=== PATIENT | female | born 1950 ===

== ENCOUNTER 2022-03-13 23:36 | Inpatient (IN) | payer MEDICARE ==
[2022-03-14 00:12] VITALS: BMI 32.6
[2022-03-14] MEDS ORDERED: Ondansetron PF 4 MG/2 ML Vial IVP PRN (01:02)
[2022-03-14] MEDS ORDERED: Guaifenesin DM 100-10/5 ML UDCUP PO PRN (01:02)
[2022-03-14] MEDS ORDERED: Senokot S 8.6-50 MG TAB PO PRN (01:02)
[2022-03-14] MEDS ORDERED: Zolpidem Tartrate 5 MG TAB PO PRN (01:02)
[2022-03-14] MEDS ORDERED: Calcium Carbonate 500 MG ChewTAB PO PRN (01:02)
[2022-03-14] MEDS ORDERED: HYDROcodone/Acetaminophen 5/325 mg Tablet PO PRN (01:02)
[2022-03-14] MEDS ORDERED: Acetaminophen 325 MG TAB PO PRN (01:02)
[2022-03-14] MEDS ORDERED: Nitroglycerin 0.4 MG TAB (25 Tab Bottle) SL PRN (01:05)
[2022-03-14] MEDS ORDERED: Morphine 2 MG/ML VIAL SLOW IVP SCH (01:15)
[2022-03-14] MEDS: Metoprolol Tartrate 25 MG TAB PO SCH ×2 (01:37→14:24)
[2022-03-14] MEDS ORDERED: Lactated Ringer's 1,000 ML IV SCH (02:00)
[2022-03-14 02:03] LABS: Anion Gap 14 mmol/L (10-20); BUN (Urea Nitrogen) 20 mg/dL (9.8-20.1); Calc. Creatinine Clearance 103 mL/min (70-130); Calcium 9.2 mg/dL (7.8-10.44); Carbon Dioxide 25 mmol/L (23-31); Chloride 104 mmol/L (98-107); Estimated GFR 83; Glucose 119 mg/dL (83-110); Potassium 3.8 mmol/L (3.5-5.1); Sodium 139 mmol/L (136-145)
[2022-03-14 02:31] LABS: CKMB 10.2 ng/mL (0-6.6)
[2022-03-14 06:26] LABS: Cardiac Risk 2.8 (Less than 4.5)
[2022-03-14 06:46] LABS: Legionella Urinary Ag Negative (Negative)
[2022-03-14 06:47] LABS: Strep pneumo Urine Ag NEGATIVE (NEGATIVE)
[2022-03-14 06:50] LABS: CKMB 9.3 ng/mL (0-6.6)
[2022-03-14] MEDS ORDERED: Enoxaparin Sodium 100 MG/ML SYRINGE SC SCH (09:00)
[2022-03-14] MEDS: Famotidine/PF 20 mg/2ml Vial SLOW IVP SCH ×2 (09:03→22:15)
[2022-03-14] MEDS: Aspirin 81 mg Enteric Coated Tablet PO SCH (09:04)
[2022-03-14] MEDS ORDERED: Iopamidol 300 61% 100 ML VIAL FS ONE (10:18)
[2022-03-14 13:05] LABS: Hemoglobin A1c 5.6 % (4.0-6.0)
[2022-03-14] MEDS ORDERED: Heparin 10,000 UNITS/ 10 ML VIAL ONE (13:54)
[2022-03-14] MEDS ORDERED: Nitroglycerin 50 MG/250 ML BOT 250 ML ONE (13:54)
[2022-03-14] MEDS ORDERED: Bivalirudin 250 MG VIAL ONE ×2 (13:55→15:54)
[2022-03-14] MEDS ORDERED: Adenosine 6 MG/2 ML VIAL ONE (13:55)
[2022-03-14] MEDS ORDERED: Verapamil 5 MG/2 ML VIAL ONE (13:55)
[2022-03-14] MEDS ORDERED: Lidocaine 1% MPF 2 ML VIAL ONE (13:59)
[2022-03-14] MEDS ORDERED: Fentanyl 100 MCG/2 ML VIAL ONE (14:12)
[2022-03-14] MEDS ORDERED: Midazolam HCl 2 mg/2 ml Vial ONE ×2 (14:12→15:35)
[2022-03-14] MEDS ORDERED: Clopidogrel Bisulfate 300 MG TAB ONE (15:22)
[2022-03-14] MEDS ORDERED: Ondansetron PF 4 MG/2 ML Vial ONE (16:20)
[2022-03-14] MEDS ORDERED: Sodium Chloride 0.9% 1,000 ML IV SCH (16:30)
[2022-03-14] MEDS ORDERED: Carvedilol 6.25 MG TAB PO SCH (16:45)
[2022-03-14] MEDS ORDERED: TICAGRELOR 90 MG TABLET PO SCH (21:00)
[2022-03-14] MEDS ORDERED: Atorvastatin Calcium 10 MG TAB PO SCH (21:00)
[2022-03-15 04:28] LABS: #Basophils 0.1 10x3/uL (0.0-0.2); #Eosinphils 0.2 10x3/uL (0.0-0.5); #Monocytes 0.7 10x3/uL (0.0-1.1); #Neutrophils 5.3 10x3/uL (1.5-8.4); %Basophils 0.8 % (0.0-2.0); %Eosinophils 3.1 % (0.0-6.0); %Lymphocytes 18.8 % (18.0-47.0); %Monocytes 9.5 % (0.0-10.0); %Neutrophils 67.4 % (40.0-75.0); ALT (SGPT) 18 U/L (8-55); AST (SGOT) 24 U/L (5-34); Albumin 3.6 g/dL (3.4-4.8); Alkaline Phosphatase 60 U/L (40-110); Anion Gap 12 mmol/L (10-20); BUN (Urea Nitrogen) 11 mg/dL (9.8-20.1); Bilirubin, Total 0.7 mg/dL (0.2-1.2); Calc. Creatinine Clearance 107 mL/min (70-130); Calcium 8.8 mg/dL (7.8-10.44); Carbon Dioxide 21 mmol/L (23-31); Chloride 106 mmol/L (98-107); Estimated GFR 87; Globulin 2.2 g/dL (2.4-3.5); Glucose 109 mg/dL (83-110); Hemoglobin 12.8 g/dL (12.0-15.5); Mean Corpuscular HGB CONC 33.7 g/dL (32.0-36.0); Mean Corpuscular Hemoglobin 29.4 pg (27.0-33.0); Mean Corpuscular Volume 87.4 fl (81.6-98.3); Mean Platelet Volume 8.8 fl (7.4-10.4); Platelet Count 344 10x3/uL (150-450); Potassium 3.7 mmol/L (3.5-5.1); Protein, Total 5.8 g/dL (5.8-8.1); RBC Distribution Width 13.6 % (11.5-14.5); Red Blood Cell (RBC) Count 4.35 10x6/uL (3.90-5.03); Sodium 135 mmol/L (136-145); White Blood Cell (WBC) Count 7.8 10x3/uL (3.5-10.5)
[2022-03-15 07:21] VITALS: TEMP 97.6
[2022-03-15] MEDS ORDERED: Carvedilol 6.25 MG TAB PO SCH (08:00)
[2022-03-15] MEDS: Famotidine/PF 20 mg/2ml Vial SLOW IVP SCH (08:32)
[2022-03-15] MEDS: Aspirin 81 mg Enteric Coated Tablet PO SCH (08:32)
[2022-03-15] MEDS ORDERED: Calcium Carbonate 500 MG ChewTAB PO SCH (09:00)
[2022-03-15] MEDS ORDERED: Clopidogrel Bisulfate 75 MG TAB PO SCH (09:00)
[2022-03-15 12:56] VITALS: BP 122/73
[2022-03-15] MEDS ORDERED: Atorvastatin Calcium 40 MG TAB PO SCH (21:00)
== END 2022-03-15 13:03 | disposition home or self-care (01) | DRG 247 ==
LOC: CSHTELE 23:36 → UNDOADMIN 23:36 → CSHTELE 03-14 01:02
PROVIDERS: ADMIT Student in an Organized Health Care Education/Training Program; ATTEND Family Medicine
PROC: 027034Z Dilation of Coronary Artery, One Artery with Drug-eluting Intraluminal Device, Percutaneous Approach (ICD-10-PCS; principal; 2022-03-14)
PROC: 4A023N7 Measurement of Cardiac Sampling and Pressure, Left Heart, Percutaneous Approach (ICD-10-PCS; 2022-03-14)
PROC: B2111ZZ Fluoroscopy of Multiple Coronary Arteries using Low Osmolar Contrast (ICD-10-PCS; 2022-03-14)
DX: I21.4 Non-ST elevation (NSTEMI) myocardial infarction (principal); I42.9 Cardiomyopathy, unspecified; R73.9 Hyperglycemia, unspecified; I25.10 Atherosclerotic heart disease of native coronary artery without angina pectoris; I10 Essential (primary) hypertension; I45.10 Unspecified right bundle-branch block; Z88.1 Allergy status to other antibiotic agents; Z88.0 Allergy status to penicillin; Z88.8 Allergy status to other drugs, medicaments and biological substances; Z98.890 Other specified postprocedural states
CPT/HCPCS: 36415; 80048; 80053; 80061; 82553; 83036; 84145; 84484; 85025; 87449; 87804; 87899; 92921; 92928; 92978; 92979; 93005; 93010; 93306; 93458; 99152; 99153; C1725; C1753; C1769; C1874; C1887; C1894; C9600; J0153; J0583; J1644; J1650; J2250; J2270; J2405; J3010; J7050; J7120; Q9967; S0028